=== PATIENT | female | born 1985 | race Caucasian/White ===

== ENCOUNTER 2017-12-08 13:12 | Day surgery (SDC) | payer OTHER ==
[~2017-12-08] VITALS: Ht 160 cm; Wt 99.0 kg
[~2017-12-08 13:12] MED LIST: (None)20 M1 PO; ACET325; ACET325 PO; ALBU90I INH; ALBU90OI; ALBU90OI INH; ALBU90OI6; ALBU90OI6 INH; ALBU90OI61 INH; AMIT25 PO; AMOCLA500 PO; AMOCLA875 PO; AMOX250; AMOX500 PO; AZIT500 PO; BECL40OI INH; BECL80OI INH; BENZ100A PO; BUSP5 PO; BUTASPCAF; Bactrim 400-801 EACH PO; CEPH500 PO; CETI5 PO; CLIN300 PO; CLON.5 PO; CYCL10; CYCL10 PO; DIPH50; DIVA125EC; DIVA500ER; DOXY100 PO; DULO60 PO; Depo-Prove150 MG/11 IM; FAMO20 PO; FLUSAL1005 IH; FLUT.05NI; FOLI1; HYDACE5 PO; HYDCHL12.5 PO; HYDHCL25 PO; HYDPAM25 PO; IBUP200; IBUP200 PO; IBUP600 PO; KETO10 PO; LEVO750; METF500 PO; METF500C PO; METO10 PO; METPHE20 PO; MINO100 PO; MULVITMINE PO; NAPR220; NAPR500 PO; NAPR550 PO; NICO21TP TOP; O2; OMEP10ER; OMEP20ER PO; ONDA4ODT; OXYACE5T PO; OXYACE7.5T PO; PARO20 PO; PARO25 PO; PENVK500 PO; PERM5TC TOP; PRED20 PO; PRENZ; PROACE100 PO; PROAIR RESPICL90 MCG IH; PROBIOTIC1 EAC2 PO; PRODEXEL PO; PROM25 PO; QUET200 PO; QVAR7.3 G1 IH; RANI150; RANI150 PO; RXCLIN PO; RXCYCL10 PO; RXHYDACE PO; RXPROACE PO; RXPROM25S PR; SERT25 PO; SULTRIDS PO; SULTRISS PO; TAMS.4ER PO; TRAM50 PO; TRAZ100 PO; TRAZ50 PO; VENL25 PO; VENL37.5 PO; ZIPR80 PO; [UNRECOGNIZED DRUG - OTHER]; [UNRECOGNIZED DRUG - REMARK]
== END 2017-12-08 16:38 | disposition home or self-care (01) ==
LOC: ORSCSDS 13:12
PROVIDERS: Obstetrics & Gynecology
PROC: 0U5F4ZZ Destruction of Cul-de-sac, Percutaneous Endoscopic Approach (ICD-10-PCS; principal; 2017-12-08 14:30)
DX: N92.1 Excessive and frequent menstruation with irregular cycle (principal); R10.2 Pelvic and perineal pain; N80.3 Endometriosis of pelvic peritoneum; G47.33 Obstructive sleep apnea (adult) (pediatric); I10 Essential (primary) hypertension; J45.909 Unspecified asthma, uncomplicated; R73.03 Prediabetes; F17.210 Nicotine dependence, cigarettes, uncomplicated; Z79.899 Other long term (current) drug therapy
CPT/HCPCS: J0171; J0690; J1100; J1885; J2250; J2370; J2405; J2765; J3010

== ENCOUNTER → 2017-12-23 | Outpatient (CLI) | payer OTHER ==
[~2017-12-23] MED LIST changes: +Omeprazole20 M1; +QUET25 PO; +QVAR REDIHALE10.6 GM INH
== END ==
LOC: LAB 09:20
DX: K21.9 Gastro-esophageal reflux disease without esophagitis (principal)
CPT/HCPCS: 87338

== ENCOUNTER 2018-07-09 11:21 | Inpatient (IN) | payer OTHER ==
[~2018-07-09] VITALS: Ht 160 cm; Wt 110.0 kg
[~2018-07-09 11:21] MED LIST changes: -Omeprazole20 M1; -QUET25 PO; -QVAR REDIHALE10.6 GM INH
[2018-07-09] MEDS ORDERED: CYCL10 PO (11:40)
[2018-07-09] MEDS ORDERED: HYDCHL12.5 PO (11:41)
[2018-07-09] MEDS ORDERED: QUET25 PO (11:41)
[2018-07-09] MEDS ORDERED: IBUP600 PO (11:41)
[2018-07-09 11:46] LABS: BASOPHILS ABSOLUTE AUTO 0.04 K/mm3 (0.00-0.23); BASOPHILS PERCENT AUTO 0 % (0-2); EOSINOPHILS ABSOLUTE AUTO 0.04 K/mm3 (0.00-0.68); EOSINOPHILS PERCENT AUTO 0 % (0-6); Hematocrit 41.5 % (33.0-51.0); Hemoglobin 13.7 g/dL (11.5-16.0); IMMATURE GRAN ABSOLUTE AUTO 0.04 K/mm3 (0.00-0.10); IMMATURE GRAN PERCENT AUTO 0 % (0-1); LYMPHOCYTES ABSOLUTE AUTO 2.28 K/mm3 (0.84-5.20); LYMPHOCYTES PERCENT AUTO 20 % (21-46); MONOCYTES ABSOLUTE AUTO 0.48 K/mm3 (0.16-1.47); MONOCYTES PERCENT AUTO 4 % (4-13); Mean Corpuscular HGB 28.7 pg (26.0-34.0); Mean Corpuscular Volume 87 fL (80-100); Mean Platelet Volume 9.1 fL (9.1-12.4); NEUTROPHILS ABSOLUTE AUTO 8.76 K/mm3 (1.96-9.15); NEUTROPHILS PERCENT AUTO 75 % (41-73); Platelet Count 345 K/mm3 (150-400); RDW Coefficient Variation 13.7 % (11.7-14.2); RDW Standard Deviation 43.4 fL (35.1-46.3); Red Blood Cell Count 4.77 M/mm3 (3.80-5.20); White Blood Cell Count 11.64 K/mm3 (4.00-11.30)
[2018-07-09 12:17] LABS: Source, Urine Clean Catch
[2018-07-09 12:19] LABS: Alanine Aminotransfer (ALT/SGP 22 U/L (12-78); Albumin, Blood 3.2 g/dL (3.4-5.0); Albumin/Globulin Ratio 0.8 (0.8-1.8); Alk Phos 93 U/L (50-136); Anion Gap 11 mmol/L (6-16); Aspartate Aminotrans (AST/SGOT 22 U/L (12-37); Bilirubin, Total 0.3 mg/dL (0.1-1.0); Blood Urea Nitrogen 15 mg/dL (8-24); Bun/Creatinine Ratio 21.8 (12.0-20.0); CO2, Blood 24 mmol/L (21-32); Calcium, Blood 7.9 mg/dL (8.5-10.1); Chloride, Blood 108 mmol/L (98-108); Creatinine, Blood 0.69 mg/dL (0.40-1.00); Globulin, Blood 4.1 g/dL (2.2-4.0); Glomerular Filtration Rate >60 (60-); Glucose, Blood 135 mg/dL (70-99); Potassium, Blood 3.5 mmol/L (3.5-5.5); Salicylate 3.7 mg/dL (2.8-20.0); Sodium, Blood 143 mmol/L (136-145); Total Protein, Blood 7.3 g/dL (6.4-8.2)
[2018-07-09 12:25] LABS: Acetaminophen, Random <2.0 ug/mL (10.0-30.0); Ethanol (Alcohol), Blood, Med <3 mg/dL
[2018-07-09 12:29] LABS: Bilirubin, Urine Neg (Neg); Blood, Urine Neg (Neg); Glucose Qualitative, Urine Neg (Neg); Ketones, Urine Neg (Neg); Leukocyte Esterase, Urine Neg (Neg); Nitrite, Urine Neg (Neg); Protein, Urine Neg (Neg); Specific Gravity, Urine 1.005 (1.003-1.022); Urobilinogen, Urine NORM (Normal)
[2018-07-09 12:45] LABS: U Amphetamine Screen Not Detected; U Barbituate Screen Not Detected; U Benzodiazapine Screen Not Detected; U Buprenorphine Screen Not Detected; U Cannabinoids Screen Not Detected; U Cocaine Screen Not Detected; U Methadone Screen Not Detected; U Methamphetamine Screen Not Detected; U Opiates Screen Not Detected; U Oxycodone Screen Not Detected; U Phencyclidine Screen Not Detected; U Propoxyphene Screen Not Detected
[2018-07-09 12:55] LABS: Appearance, Urine Clear (Clear); Color, Urine Pale Yellow (P-Yellow)
[2018-07-10 04:03] LABS: BASOPHILS ABSOLUTE AUTO 0.07 K/mm3 (0.00-0.23); BASOPHILS PERCENT AUTO 1 % (0-2); EOSINOPHILS ABSOLUTE AUTO 0.18 K/mm3 (0.00-0.68); EOSINOPHILS PERCENT AUTO 2 % (0-6); Hematocrit 37.1 % (33.0-51.0); IMMATURE GRAN ABSOLUTE AUTO 0.02 K/mm3 (0.00-0.10); IMMATURE GRAN PERCENT AUTO 0 % (0-1); LYMPHOCYTES ABSOLUTE AUTO 6.48 K/mm3 (0.84-5.20); LYMPHOCYTES PERCENT AUTO 56 % (21-46); MONOCYTES ABSOLUTE AUTO 0.63 K/mm3 (0.16-1.47); MONOCYTES PERCENT AUTO 5 % (4-13); Mean Corpuscular HGB 28.2 pg (26.0-34.0); Mean Corpuscular HGB Conc 32.3 g/dL (31.5-36.5); Mean Corpuscular Volume 87 fL (80-100); Mean Platelet Volume 9.6 fL (9.1-12.4); NEUTROPHILS ABSOLUTE AUTO 4.29 K/mm3 (1.96-9.15); NEUTROPHILS PERCENT AUTO 37 % (41-73); Platelet Count 323 K/mm3 (150-400); RDW Standard Deviation 43.7 fL (35.1-46.3); Red Blood Cell Count 4.26 M/mm3 (3.80-5.20); White Blood Cell Count 11.67 K/mm3 (4.00-11.30)
[2018-07-10 04:25] LABS: Anion Gap 9 mmol/L (6-16); Blood Urea Nitrogen 16 mg/dL (8-24); CO2, Blood 24 mmol/L (21-32); Chloride, Blood 111 mmol/L (98-108); Glomerular Filtration Rate >60 (60-); Glucose, Blood 112 mg/dL (70-99); Potassium, Blood 3.3 mmol/L (3.5-5.5); Sodium, Blood 144 mmol/L (136-145)
[2018-07-10] MEDS ORDERED: CETI5 PO (10:10)
[2018-07-10] MEDS ORDERED: HYDPAM25 PO (10:11)
[2018-07-10] MEDS ORDERED: Omeprazole20 M1 (10:13)
[2018-07-10] MEDS ORDERED: QVAR REDIHALE10.6 GM INH (10:14)
[2018-07-10] MEDS ORDERED: CYCL10 PO (10:16)
== END 2018-07-10 14:10 | disposition home or self-care (01) | DRG 918 ==
LOC: ER 11:21 → ICUW 13:12
PROVIDERS: Hospitalist; Internal Medicine
DX: T43.592A Poisoning by other antipsychotics and neuroleptics, intentional self-harm, initial encounter (principal); I47.1 Supraventricular tachycardia; K86.1 Other chronic pancreatitis; Z68.41 Body mass index [BMI] 40.0-44.9, adult; F31.9 Bipolar disorder, unspecified; G47.30 Sleep apnea, unspecified; Z87.442 Personal history of urinary calculi; F17.210 Nicotine dependence, cigarettes, uncomplicated; Y92.9 Unspecified place or not applicable; E66.01 Morbid (severe) obesity due to excess calories; K21.9 Gastro-esophageal reflux disease without esophagitis; M19.90 Unspecified osteoarthritis, unspecified site; F44.81 Dissociative identity disorder; J30.9 Allergic rhinitis, unspecified; K58.9 Irritable bowel syndrome, unspecified; J44.9 Chronic obstructive pulmonary disease, unspecified
CPT/HCPCS: 36415; 80048; 80053; 81003; 81025; 84443; 85025; 93005; 93010; 96361; 96374; 99285-25; G0480; J1650; J2405; J7120

== ENCOUNTER → 2019-08-09 | Outpatient (CLI) | payer OTHER ==
[~2019-08-09] MED LIST changes: +Omeprazole20 M1; +QUET25 PO; +QVAR REDIHALE10.6 GM INH
[2019-08-12 04:06] LABS: CHLAMYDIA TRACHOMATIS, NAA Negative (Negative); NEISSERIA GONORRHOEAE, NAA Negative (Negative)
== END | disposition home or self-care (01) ==
LOC: LAB SHORT 16:00 → LAB 16:00
PROVIDERS: Nurse Practitioner Family
DX: Z11.59 Encounter for screening for other viral diseases (principal)
CPT/HCPCS: 87491; 87591

== ENCOUNTER → 2020-02-26 | Outpatient (CLI) | payer OTHER ==
[2020-02-29 04:07] LABS: CHLAMYDIA TRACHOMATIS, NAA Negative (Negative); NEISSERIA GONORRHOEAE, NAA Negative (Negative)
== END ==
LOC: LAB 14:40 → LAB SHORT 14:40
PROVIDERS: Registered Nurse Community Health
DX: Z11.3 Encounter for screening for infections with a predominantly sexual mode of transmission (principal); Z20.2 Contact with and (suspected) exposure to infections with a predominantly sexual mode of transmission
CPT/HCPCS: 87491; 87591

== ENCOUNTER → 2020-05-20 | Outpatient (CLI) | payer OTHER ==
[2020-05-21 21:08] LABS: HPV 16 Negative (Negative); HPV OTHER HR TYPES Positive (Negative)
[2020-05-23 07:15] LABS: HPV 18 Negative (Negative)
[2020-05-23 10:09] LABS: CHLAMYDIA BY NAA Negative (Negative); GONOCOCCUS BY NAA Negative (Negative); TRICH VAG BY NAA Positive (Negative)
== END ==
LOC: LAB 18:13 → LAB SHORT 18:13
PROVIDERS: Registered Nurse Community Health
DX: Z12.4 Encounter for screening for malignant neoplasm of cervix (principal); Z11.3 Encounter for screening for infections with a predominantly sexual mode of transmission
CPT/HCPCS: 87491; 87591; 87624; 87661; G0123

== ENCOUNTER → 2020-07-21 | Outpatient (CLI) | payer OTHER | LOC: PLD 07:29 → LAB SHORT 07:29 | DX: N87.9 Dysplasia of cervix uteri, unspecified (principal) | CPT/HCPCS: 88305 ==

== ENCOUNTER 2021-06-05 15:31 | Emergency (ER) | payer OTHER ==
[~2021-06-05] VITALS: Ht 162.6 cm; Wt 98.4 kg
[2021-06-05 16:37] LABS: BASOPHILS ABSOLUTE AUTO 0.05 K/mm3 (0.00-0.23); BASOPHILS PERCENT AUTO 1 % (0-2); EOSINOPHILS PERCENT AUTO 1 % (0-6); Hematocrit 41.9 % (33.0-51.0); Hemoglobin 13.9 g/dL (11.5-16.0); IMMATURE GRAN ABSOLUTE AUTO 0.03 K/mm3 (0.00-0.10); IMMATURE GRAN PERCENT AUTO 0 % (0-1); LYMPHOCYTES ABSOLUTE AUTO 3.34 K/mm3 (0.84-5.20); LYMPHOCYTES PERCENT AUTO 32 % (21-46); MONOCYTES ABSOLUTE AUTO 0.32 K/mm3 (0.16-1.47); MONOCYTES PERCENT AUTO 3 % (4-13); Mean Corpuscular HGB 28.9 pg (26.0-34.0); Mean Corpuscular HGB Conc 33.2 g/dL (31.5-36.5); Mean Corpuscular Volume 87 fL (80-100); Mean Platelet Volume 9.2 fL (9.1-12.4); NEUTROPHILS ABSOLUTE AUTO 6.67 K/mm3 (1.96-9.15); NEUTROPHILS PERCENT AUTO 63 % (41-73); Platelet Count 376 K/mm3 (150-400); RDW Coefficient Variation 14.4 % (11.7-14.2); RDW Standard Deviation 45.9 fL (35.1-46.3); Red Blood Cell Count 4.81 M/mm3 (3.80-5.20); White Blood Cell Count 10.51 K/mm3 (4.00-11.30)
[2021-06-05 16:41] LABS: Source, Urine Clean Catch
[2021-06-05 16:58] LABS: Alanine Aminotransfer (ALT/SGP 21 U/L (12-78); Albumin, Blood 3.5 g/dL (3.4-5.0); Albumin/Globulin Ratio 0.9 (0.8-1.8); Alk Phos 74 U/L (50-136); Anion Gap 6 mmol/L (6-16); Aspartate Aminotrans (AST/SGOT 16 U/L (12-37); Bilirubin, Total 0.3 mg/dL (0.1-1.0); Blood Urea Nitrogen 14 mg/dL (8-24); Bun/Creatinine Ratio 19.4 (12.0-20.0); CO2, Blood 27 mmol/L (21-32); Calcium, Blood 9.1 mg/dL (8.5-10.1); Chloride, Blood 107 mmol/L (98-108); Creatinine, Blood 0.72 mg/dL (0.40-1.00); Globulin, Blood 4.1 g/dL (2.2-4.0); Glomerular Filtration Rate >60 (60-); Glucose, Blood 133 mg/dL (70-99); Potassium, Blood 3.4 mmol/L (3.5-5.5); Sodium, Blood 140 mmol/L (136-145); Total Protein, Blood 7.6 g/dL (6.4-8.2)
[2021-06-05 16:59] LABS: Appearance, Urine Hazy (Clear); Bilirubin, Urine Neg (Neg); Blood, Urine Neg (Neg); Color, Urine Yellow (P-Yellow); Glucose Qualitative, Urine Neg (Neg); Ketones, Urine Neg (Neg); Leukocyte Esterase, Urine Neg (Neg); Nitrite, Urine Neg (Neg); Protein, Urine Neg (Neg); Specific Gravity, Urine 1.025 (1.003-1.022); Urobilinogen, Urine NORM (Normal)
[2021-06-05 17:12] LABS: Bacteria Few /hpf; Mucus Light (0-Heavy); Squamous Epithelial Cells Mod /hpf (Few); White Blood Cells, Urine 0-2 /hpf (0-5)
[2021-06-05] MEDS ORDERED: Neurontin 100100 MG PO (20:41)
== END 2021-06-05 20:58 | disposition home or self-care (01) ==
LOC: ER 15:31
PROVIDERS: Physician Assistant
DX: M54.5 Low back pain (principal); R32 Unspecified urinary incontinence; R20.0 Anesthesia of skin; J44.9 Chronic obstructive pulmonary disease, unspecified; F17.210 Nicotine dependence, cigarettes, uncomplicated; Z88.0 Allergy status to penicillin; Z88.6 Allergy status to analgesic agent; Z88.5 Allergy status to narcotic agent; Z79.899 Other long term (current) drug therapy
CPT/HCPCS: 36415; 72157; 72158; 80053; 81001; 85025; 85651; 86140; 96374-59; 99284-25; A9270; A9579; J2060

== ENCOUNTER 2021-07-06 08:32 | Emergency (ER) | payer OTHER ==
[~2021-07-06] VITALS: Ht 162.6 cm; Wt 96.6 kg
[~2021-07-06 08:32] MED LIST changes: +Neurontin 100100 MG PO
[2021-07-06] MEDS ORDERED: PREG25 PO (12:23)
[2021-07-06] MEDS ORDERED: PRED20 PO (12:23)
[2021-07-06] MEDS ORDERED: IBUP800 PO (12:23)
[2021-07-06] MEDS ORDERED: Robaxin750 MG PO (12:23)
== END 2021-07-06 13:02 | disposition home or self-care (01) ==
LOC: ER 08:32
DX: M54.42 Lumbago with sciatica, left side (principal); M51.16 Intervertebral disc disorders with radiculopathy, lumbar region; J44.9 Chronic obstructive pulmonary disease, unspecified; G89.29 Other chronic pain; F17.210 Nicotine dependence, cigarettes, uncomplicated; Z88.0 Allergy status to penicillin; Z88.6 Allergy status to analgesic agent; Z88.5 Allergy status to narcotic agent; Z88.8 Allergy status to other drugs, medicaments and biological substances
CPT/HCPCS: 51798; 72131; 96372; 99284-25; A9270; J1885; J7512

== ENCOUNTER → 2021-07-22 | Outpatient (CLI) | payer OTHER ==
[~2021-07-22] MED LIST changes: +IBUP800 PO; +PREG25 PO; +Robaxin750 MG PO
[2021-07-24 15:08] LABS: HPV 16 Negative (Negative); HPV 18 Negative (Negative); HPV OTHER HR TYPES Positive (Negative)
== END ==
LOC: LAB 14:31 → LAB SHORT 14:31
PROVIDERS: Registered Nurse Community Health
DX: Z12.4 Encounter for screening for malignant neoplasm of cervix (principal)
CPT/HCPCS: 87624; G0123

== ENCOUNTER → 2022-09-13 | Outpatient (CLI) | payer OTHER ==
[2022-09-15 15:10] LABS: HPV 16 Negative (Negative); HPV 18 Negative (Negative); HPV OTHER HR TYPES Positive (Negative)
== END | disposition home or self-care (01) ==
LOC: LAB SHORT 14:00 → LAB 14:00
PROVIDERS: Registered Nurse Community Health
DX: Z12.4 Encounter for screening for malignant neoplasm of cervix (principal)
CPT/HCPCS: 87624; 87625; G0123

== ENCOUNTER 2023-12-06 18:19 | Emergency (ER) | payer OTHER ==
[~2023-12-06] VITALS: Ht 162.6 cm; Wt 79.4 kg
[2023-12-06 19:28] LABS: Hematocrit 47.4 % (33.0-51.0); Hemoglobin 15.8 g/dL (11.5-16.0); Mean Corpuscular HGB 29.4 pg (26.0-34.0); Mean Corpuscular HGB Conc 33.3 g/dL (31.5-36.5); Mean Corpuscular Volume 88 fL (80-100); Mean Platelet Volume 8.7 fL (9.1-12.4); Platelet Count 553 K/mm3 (150-400); RDW Coefficient Variation 14.1 % (11.7-14.2); RDW Standard Deviation 45.6 fL (35.1-46.3); Red Blood Cell Count 5.38 M/mm3 (3.80-5.20); White Blood Cell Count 17.14 K/mm3 (4.00-11.30)
[2023-12-06 19:49] LABS: BASOPHILS PERCENT MAN 0 % (0-2); EOSINOPHILS PERCENT MAN 0 % (0-6); LYMPHOCYTES % ATYPICAL MANUAL 1 % (0-0); LYMPHOCYTES ABSOLUTE MAN 4.97 K/mm3 (0.84-5.20); LYMPHOCYTES PERCENT MAN 28 % (21-46); MONOCYTES ABSOLUTE MAN 0.68 K/mm3 (0.16-1.47); MONOCYTES PERCENT MAN 4 % (4-13); NEUTROPHILS ABSOLUTE MAN 11.48 K/mm3 (1.96-9.15); SEG NEUTROPHILS PERCENT MAN 67 % (41-73); TOTAL CELLS COUNTED 100
[2023-12-06 19:51] LABS: Albumin/Globulin Ratio 0.8 (0.8-1.8); Bilirubin, Total 0.4 mg/dL (0.1-1.0); Bun/Creatinine Ratio 15.5 (12.0-20.0); Calcium, Blood 10.3 mg/dL (8.5-10.1); Creatinine, Blood 0.58 mg/dL (0.40-1.00); Globulin, Blood 4.8 g/dL (2.2-4.0); Potassium, Blood 3.4 mmol/L (3.5-5.5); Total Protein, Blood 8.8 g/dL (6.4-8.2)
[2023-12-06 20:04] LABS: Influenza A, PCR NEGATIVE (NEGATIVE); Influenza B, PCR NEGATIVE (NEGATIVE); Resp Syncytial Virus, PCR NEGATIVE (NEGATIVE); SARS-Cov-2 (COVID-19) PCR, MMC NEGATIVE (NEGATIVE)
[2023-12-06] MEDS ORDERED: CITALOPRAM HBR20 M9 PO (21:19)
[2023-12-06] MEDS ORDERED: HYDCHL25 PO (21:19)
[2023-12-06] MEDS ORDERED: HYDROCODONE-AC1 EAC7 PO (21:20)
[2023-12-06] MEDS ORDERED: Inderal40 MG PO (21:20)
[2023-12-07] MEDS ORDERED: Ibuprofen600 MG PO (00:01)
[2023-12-07] MEDS ORDERED: Norco 10-325 T1 EACH PO (00:01)
[2023-12-07 00:30] VITALS: BP 147/114
== END 2023-12-07 00:34 | disposition home or self-care (01) ==
LOC: ER 18:19
PROVIDERS: Student in an Organized Health Care Education/Training Program
DX: Z76.0 Encounter for issue of repeat prescription (principal); S76.911A Strain of unspecified muscles, fascia and tendons at thigh level, right thigh, initial encounter; W17.81XA Fall down embankment (hill), initial encounter; F15.90 Other stimulant use, unspecified, uncomplicated; F11.20 Opioid dependence, uncomplicated; J44.9 Chronic obstructive pulmonary disease, unspecified; F31.9 Bipolar disorder, unspecified; F17.210 Nicotine dependence, cigarettes, uncomplicated; Z88.0 Allergy status to penicillin; Z88.8 Allergy status to other drugs, medicaments and biological substances; Z88.1 Allergy status to other antibiotic agents; Z88.5 Allergy status to narcotic agent; Z91.013 Allergy to seafood; Z20.822 Contact with and (suspected) exposure to COVID-19
CPT/HCPCS: 0241U; 71046; 72170; 73560-RT; 80053; 85025; 93005; 93010; 96372; 99284-25; J1885

== ENCOUNTER 2023-12-19 18:30 | Emergency (ER) | payer OTHER ==
[~2023-12-19] VITALS: Ht 162.6 cm; Wt 81.2 kg
[~2023-12-19 18:30] MED LIST changes: +CITALOPRAM HBR20 M9 PO; +HYDCHL25 PO; +HYDROCODONE-AC1 EAC7 PO; +Ibuprofen600 MG PO; +Inderal40 MG PO; +Norco 10-325 T1 EACH PO
[2023-12-19 18:53] LABS: Source, Urine Clean Catch
[2023-12-19 18:56] LABS: Appearance, Urine Clear (Clear); Bilirubin, Urine Neg (Neg); Blood, Urine Neg (Neg); Color, Urine Yellow (P-Yellow); Glucose Qualitative, Urine Neg (Neg); Ketones, Urine Neg (Neg); Leukocyte Esterase, Urine Neg (Neg); Nitrite, Urine Neg (Neg); Protein, Urine Neg (Neg); Urobilinogen, Urine NORM (Normal); pH, Urine 6.5 (5.0-8.0)
[2023-12-19 19:10] VITALS: BP 120/99
[2023-12-19 19:13] LABS: U Amphetamine Screen DETECTED; U Barbituate Screen Not Detected; U Benzodiazapine Screen Not Detected; U Buprenorphine Screen Not Detected; U Cannabinoids Screen Not Detected; U Cocaine Screen Not Detected; U Methadone Screen Not Detected; U Methamphetamine Screen DETECTED; U Opiates Screen DETECTED; U Oxycodone Screen Not Detected; U Phencyclidine Screen Not Detected
[2023-12-19 19:58] LABS: Hematocrit 44.3 % (33.0-51.0); Hemoglobin 15.3 g/dL (11.5-16.0); Mean Corpuscular HGB 29.2 pg (26.0-34.0); Mean Corpuscular HGB Conc 34.5 g/dL (31.5-36.5); Mean Corpuscular Volume 85 fL (80-100); RDW Coefficient Variation 13.3 % (11.7-14.2); RDW Standard Deviation 41.3 fL (35.1-46.3); Red Blood Cell Count 5.24 M/mm3 (3.80-5.20)
[2023-12-19 20:06] LABS: Ethanol (Alcohol), Blood, Med <3 mg/dL; Salicylate 2.5 mg/dL (2.8-20.0)
[2023-12-19 20:19] LABS: Acetaminophen, Random <2.0 ug/mL (10.0-30.0); Alanine Aminotransfer (ALT/SGP 29 U/L (12-78); Albumin, Blood 3.6 g/dL (3.4-5.0); Albumin/Globulin Ratio 0.8 (0.8-1.8); Alk Phos 108 U/L (50-136); Anion Gap 6 mmol/L (6-16); Aspartate Aminotrans (AST/SGOT 43 U/L (12-37); Bilirubin, Total 0.6 mg/dL (0.1-1.0); Blood Urea Nitrogen 16 mg/dL (8-24); Bun/Creatinine Ratio 24.7 (12.0-20.0); CO2, Blood 23 mmol/L (21-32); Calcium, Blood 9.8 mg/dL (8.5-10.1); Chloride, Blood 107 mmol/L (98-108); Creatinine, Blood 0.65 mg/dL (0.40-1.00); Globulin, Blood 4.5 g/dL (2.2-4.0); Glomerular Filtration Rate 117 (60-); Glucose, Blood 99 mg/dL (70-99); Sodium, Blood 136 mmol/L (136-145); Total Protein, Blood 8.1 g/dL (6.4-8.2)
[2023-12-19 20:26] LABS: Platelet Count 469 K/mm3 (150-400)
[2023-12-19 20:30] LABS: BAND PERCENT MAN 3 % (0-8); BASOPHILS PERCENT MAN 0 % (0-2); EOSINOPHILS ABSOLUTE MAN 0.36 K/mm3 (0.00-0.68); EOSINOPHILS PERCENT MAN 2 % (0-6); LYMPHOCYTES ABSOLUTE MAN 4.88 K/mm3 (0.84-5.20); LYMPHOCYTES PERCENT MAN 27 % (21-46); MONOCYTES ABSOLUTE MAN 0.36 K/mm3 (0.16-1.47); MONOCYTES PERCENT MAN 2 % (4-13); NEUTROPHILS ABSOLUTE MAN 12.48 K/mm3 (1.96-9.15); SEG NEUTROPHILS PERCENT MAN 66 % (41-73); TOTAL CELLS COUNTED 100
== END 2023-12-19 21:48 | disposition home or self-care (01) ==
LOC: ER 18:30
PROVIDERS: Emergency Medicine
DX: F32.A Depression, unspecified (principal); F15.10 Other stimulant abuse, uncomplicated; F17.210 Nicotine dependence, cigarettes, uncomplicated; Z88.0 Allergy status to penicillin; Z88.5 Allergy status to narcotic agent; Z88.1 Allergy status to other antibiotic agents; Z91.013 Allergy to seafood; Z79.899 Other long term (current) drug therapy; J44.9 Chronic obstructive pulmonary disease, unspecified
CPT/HCPCS: 80053; 81003; 85025; 99285; G0480

== ENCOUNTER → 2024-08-21 | Outpatient (CLI) | payer OTHER ==
[2024-08-24 08:29] LABS: HIV 1,2 COMBO ANTIGEN/ANTIBODY Negative (Negative)
[2024-08-24 10:13] LABS: HEPATITIS A ANTIBODY, IGM Negative (Negative); HEPATITIS B CORE ANTIBODY, IGM Negative (Negative); HEPATITIS B SURFACE ANTIGEN Negative (Negative); HEPATITIS C AB CIA INTERP Negative (Negative); HEPATITIS C ANTIBODY CIA INDEX 0.04 IV
== END ==
LOC: LAB 12:30 → LAB SHORT 12:30
PROVIDERS: Nurse Practitioner Family
DX: Z72.51 High risk heterosexual behavior (principal)
CPT/HCPCS: 80074; 87389

== ENCOUNTER 2024-08-24 16:33 | Emergency (ER) | payer OTHER ==
[~2024-08-24] VITALS: Ht 160 cm; Wt 81.7 kg
[2024-08-24 17:12] LABS: BASOPHILS ABSOLUTE AUTO 0.04 K/mm3 (0.00-0.23); BASOPHILS PERCENT AUTO 1 % (0-2); EOSINOPHILS ABSOLUTE AUTO 0.07 K/mm3 (0.00-0.68); EOSINOPHILS PERCENT AUTO 1 % (0-6); Hematocrit 40.3 % (33.0-51.0); Hemoglobin 13.5 g/dL (11.5-16.0); IMMATURE GRAN ABSOLUTE AUTO 0.02 K/mm3 (0.00-0.10); IMMATURE GRAN PERCENT AUTO 0 % (0-1); LYMPHOCYTES ABSOLUTE AUTO 1.84 K/mm3 (0.84-5.20); LYMPHOCYTES PERCENT AUTO 30 % (21-46); MONOCYTES ABSOLUTE AUTO 0.65 K/mm3 (0.16-1.47); MONOCYTES PERCENT AUTO 11 % (4-13); Mean Corpuscular HGB 28.8 pg (26.0-34.0); Mean Corpuscular HGB Conc 33.5 g/dL (31.5-36.5); Mean Corpuscular Volume 86 fL (80-100); Mean Platelet Volume 9.1 fL (9.1-12.4); NEUTROPHILS ABSOLUTE AUTO 3.54 K/mm3 (1.96-9.15); NEUTROPHILS PERCENT AUTO 58 % (41-73); Platelet Count 322 K/mm3 (150-400); RDW Coefficient Variation 13.5 % (11.7-14.2); Red Blood Cell Count 4.69 M/mm3 (3.80-5.20); White Blood Cell Count 6.16 K/mm3 (4.00-11.30)
[2024-08-24 17:27] LABS: Albumin, Blood 3.1 g/dL (3.4-5.0); Albumin/Globulin Ratio 0.8 (0.8-1.8); Bilirubin, Total 0.2 mg/dL (0.1-1.0); Calcium, Blood 8.4 mg/dL (8.5-10.1); Creatinine, Blood 0.76 mg/dL (0.40-1.00); Globulin, Blood 3.7 g/dL (2.2-4.0); Potassium, Blood 3.3 mmol/L (3.5-5.5); Total Protein, Blood 6.8 g/dL (6.4-8.2)
[2024-08-24 17:31] LABS: Influenza A, PCR NEGATIVE (NEGATIVE); Influenza B, PCR NEGATIVE (NEGATIVE); Resp Syncytial Virus, PCR NEGATIVE (NEGATIVE)
[2024-08-24 17:32] LABS: SARS-Cov-2 (COVID-19) PCR, MMC POSITIVE (NEGATIVE)
[2024-08-24] MEDS ORDERED: Droperidol 5 mg/2 ml Vial IV ONE (17:50)
[2024-08-24] MEDS ORDERED: NS 1,000 ML IV SCH (17:50)
[2024-08-24 19:00] VITALS: BP 126/92
== END 2024-08-24 19:15 | disposition home or self-care (01) ==
LOC: ER 16:33
PROVIDERS: Physician Assistant
DX: U07.1 COVID-19 (principal); J44.9 Chronic obstructive pulmonary disease, unspecified; G47.00 Insomnia, unspecified; F17.210 Nicotine dependence, cigarettes, uncomplicated; Z79.899 Other long term (current) drug therapy; Z88.0 Allergy status to penicillin; Z88.6 Allergy status to analgesic agent; Z88.5 Allergy status to narcotic agent; Z91.018 Allergy to other foods; Z88.8 Allergy status to other drugs, medicaments and biological substances
CPT/HCPCS: 0241U; 71046; 80053; 84484; 85025; 93005; 93010; 96374; 99285-25; J1790; J7030

== ENCOUNTER → 2024-09-03 | Outpatient (CLI) | payer OTHER ==
[2024-09-05 09:37] LABS: APTIMA MEDIA TYPE Unisex Swab; C. TRACHOMATIS BY TMA Negative (Negative); N. GONORRHOEAE BY TMA Negative (Negative); SPECIMEN SOURCE Not Provided; T. VAGINALIS BY TMA Negative (Negative)
== END | disposition home or self-care (01) ==
LOC: LAB SHORT 12:54 → LAB 12:54
PROVIDERS: Registered Nurse Community Health
DX: Z11.3 Encounter for screening for infections with a predominantly sexual mode of transmission (principal)
CPT/HCPCS: 87491; 87591; 87661

== ENCOUNTER 2025-06-30 12:50 | Inpatient (IN) | payer OTHER ==
[~2025-06-30] VITALS: Ht 162.6 cm; Wt 106.0 kg
[~2025-06-30 12:50] MED LIST changes: +BUPROPION HCL200 M1 PO; +BUTALB-ACETAMI1 EAC5 PO; +Chantix1 MG PO; +Cyclobenzaprine5 MG PO; +DOCUZEN 8.6-501 EACH PO; +LOSARTAN-HCTZ1 EAC6 PO; +MELO7.5 PO; +MIRALAX11914 PO; +VARENICLINE TA1 EACH PO
[2025-06-30] MEDS ORDERED: Cetirizine HCl10 MG PO (13:13)
[2025-06-30] MEDS ORDERED: MIRALAX11914 PO (13:13)
[2025-06-30] MEDS ORDERED: MELO7.5 PO (13:14)
[2025-06-30] MEDS ORDERED: PROAIR RESPICL90 MCG IH (13:14)
[2025-06-30] MEDS ORDERED: VITAMIN D5000 UNIT PO (13:14)
[2025-06-30] MEDS ORDERED: MEDROXYPRO150 MG/29 IM (13:15)
[2025-06-30 13:43] LABS: BASOPHILS ABSOLUTE AUTO 0.07 K/mm3 (0.00-0.23); BASOPHILS PERCENT AUTO 1 % (0-2); EOSINOPHILS ABSOLUTE AUTO 0.12 K/mm3 (0.00-0.68); EOSINOPHILS PERCENT AUTO 1 % (0-6); Hematocrit 42.2 % (33.0-51.0); Hemoglobin 14.1 g/dL (11.5-16.0); IMMATURE GRAN ABSOLUTE AUTO 0.04 K/mm3 (0.00-0.10); IMMATURE GRAN PERCENT AUTO 0 % (0-1); LYMPHOCYTES ABSOLUTE AUTO 3.47 K/mm3 (0.84-5.20); LYMPHOCYTES PERCENT AUTO 23 % (21-46); MONOCYTES ABSOLUTE AUTO 0.87 K/mm3 (0.16-1.47); MONOCYTES PERCENT AUTO 6 % (4-13); Mean Corpuscular HGB Conc 33.4 g/dL (31.5-36.5); Mean Corpuscular Volume 85 fL (80-100); NEUTROPHILS ABSOLUTE AUTO 10.50 K/mm3 (1.96-9.15); NEUTROPHILS PERCENT AUTO 70 % (41-73); NRBC ABSOLUTE 0.00 K/mm3 (0.00-0.02); NRBC Auto 0.0 /100 WBC (0.0-0.2); Platelet Count 462 K/mm3 (150-400); RDW Coefficient Variation 14.9 % (11.7-14.2); RDW Standard Deviation 46.6 fL (35.1-46.3)
[2025-06-30 13:52] LABS: Acetaminophen, Random <2.0 ug/mL (10.0-30.0); Ethanol (Alcohol), Blood, Med <3 mg/dL; Salicylate 3.4 mg/dL (2.8-20.0)
[2025-06-30 13:53] LABS: Alanine Aminotransfer (ALT/SGP 35 U/L (12-78); Albumin, Blood 3.5 g/dL (3.4-5.0); Albumin/Globulin Ratio 0.9 (0.8-1.8); Anion Gap 10 mmol/L (3-11); Aspartate Aminotrans (AST/SGOT 50 U/L (12-37); Bilirubin, Total 0.5 mg/dL (0.1-1.0); Blood Urea Nitrogen 5 mg/dL (8-24); CO2, Blood 25 mmol/L (21-32); Calcium, Blood 9.2 mg/dL (8.5-10.1); Chloride, Blood 105 mmol/L (98-108); Creatinine, Blood 0.77 mg/dL (0.40-1.00); Globulin, Blood 4.1 g/dL (2.2-4.0); Glucose, Blood 125 mg/dL (70-99); Potassium, Blood 2.6 mmol/L (3.5-5.5); Sodium, Blood 137 mmol/L (136-145); Total Protein, Blood 7.6 g/dL (6.4-8.2)
[2025-06-30 14:57] LABS: Influenza A, PCR NEGATIVE (NEGATIVE); Influenza B, PCR NEGATIVE (NEGATIVE); Resp Syncytial Virus, PCR NEGATIVE (NEGATIVE); SARS-Cov-2 (COVID-19) PCR, MMC NEGATIVE (NEGATIVE)
[2025-06-30 15:05] LABS: U Amphetamine Screen DETECTED; U Barbituate Screen DETECTED; U Benzodiazapine Screen Not Detected; U Buprenorphine Screen Not Detected; U Cannabinoids Screen Not Detected; U Cocaine Screen Not Detected; U Methadone Screen Not Detected; U Methamphetamine Screen DETECTED; U Opiates Screen Not Detected; U Oxycodone Screen Not Detected; U Phencyclidine Screen Not Detected
[2025-06-30 17:36] LABS: Anion Gap 7.0 mmol/L (3-11); Blood Urea Nitrogen 6.0 mg/dL (8-24); CO2, Blood 29.0 mmol/L (21-32); Calcium, Blood 8.6 mg/dL (8.5-10.1); Chloride, Blood 105.0 mmol/L (98-108); Creatinine, Blood 0.66 mg/dL (0.40-1.00); Glucose, Blood 114.0 mg/dL (70-99); Potassium, Blood 3.2 mmol/L (3.5-5.5); Sodium, Blood 138.0 mmol/L (136-145)
[2025-06-30] MEDS ORDERED: Potassium Chl 20MEQ/Water100ML 100 ML IV SCH (18:00)
[2025-06-30] MEDS ORDERED: NS 1,000 ML IV SCH ×2 (18:00→22:00)
[2025-06-30] MEDS ORDERED: DiphenhydrAMINE HCl 50 MG/ML 1ML Vial IV ONE (18:05)
[2025-06-30] MEDS ORDERED: Diazepam 5 MG / ML 2ML SYR IV ONE ×3 (19:10→23:00)
[2025-06-30 20:06] LABS: Magnesium, Blood 2.2 mg/dL (1.6-2.4); Phosphorus, Blood 3.5 mg/dL (2.5-4.9); Salicylate 3.0 mg/dL (2.8-20.0)
[2025-06-30] MEDS ORDERED: Ondansetron HCl 2 MG / ML 2ML Vial IV PRN (22:05)
[2025-06-30] MEDS ORDERED: Diazepam 5 MG / ML 2ML SYR IV PRN ×2 (22:45→23:00)
[2025-06-30] MEDS ORDERED: Polyethylene Glycol 3350 119 GM PO PRN (23:00)
[2025-06-30] MEDS ORDERED: Polyethylene Glycol 3350 119 GM PO ONE (23:00)
[2025-06-30 23:08] LABS: Thyroid Stimulating Hormone 4.04 uIU/mL (0.360-4.800)
[2025-06-30] MEDS ORDERED: Albuterol HFA200 ACT/6.7 GM INH INH PRN (23:10)
[2025-06-30 23:36] LABS: Source, Urine Clean Catch
[2025-06-30 23:39] LABS: Bilirubin, Urine Neg (Neg); Glucose Qualitative, Urine Neg (Neg); Ketones, Urine Neg (Neg); Leukocyte Esterase, Urine Neg (Neg); Protein, Urine 1+ (Neg); Specific Gravity, Urine 1.010 (1.003-1.022); Urobilinogen, Urine NORM (Normal)
[2025-06-30 23:51] LABS: Color, Urine Yellow (P-Yellow); Red Blood Cells, Urine Not Seen /hpf (0-2); White Blood Cells, Urine Not Seen /hpf (0-5)
[2025-07-01] VITALS (42 sets, daily range): BP systolic 104–169; BP diastolic 67–160
[2025-07-01] MEDS ORDERED: Diazepam 5 MG / ML 2ML SYR IV PRN (04:40)
[2025-07-01 05:16] LABS: Anion Gap 10.0 mmol/L (3-11); Blood Urea Nitrogen 5.0 mg/dL (8-24); CO2, Blood 26.0 mmol/L (21-32); Calcium, Blood 8.4 mg/dL (8.5-10.1); Chloride, Blood 109.0 mmol/L (98-108); Creatinine, Blood 0.72 mg/dL (0.40-1.00); Glucose, Blood 140.0 mg/dL (70-99); Potassium, Blood 3.6 mmol/L (3.5-5.5); Sodium, Blood 141.0 mmol/L (136-145)
[2025-07-01] MEDS ORDERED: Enoxaparin 40 MG/0.4 ML SYR SC SCH (09:00)
[2025-07-01] MEDS ORDERED: Magnesium Sulf 2 GM/Water 50ML 50 ML IV ONE (11:35)
[2025-07-01] MEDS ORDERED: Formoterol/Mometasone MDI 5/200 mcg 13 GM INH SCH (17:40)
[2025-07-01 18:24] LABS: Alanine Aminotransfer (ALT/SGP 33.0 U/L (12-78); Albumin, Blood 2.9 g/dL (3.4-5.0); Albumin/Globulin Ratio 0.8 (0.8-1.8); Anion Gap 8.0 mmol/L (3-11); Aspartate Aminotrans (AST/SGOT 37.0 U/L (12-37); Bilirubin, Total 0.3 mg/dL (0.1-1.0); Blood Urea Nitrogen 5.0 mg/dL (8-24); CO2, Blood 23.0 mmol/L (21-32); Calcium, Blood 8.5 mg/dL (8.5-10.1); Chloride, Blood 113.0 mmol/L (98-108); Creatinine, Blood 0.71 mg/dL (0.40-1.00); Globulin, Blood 3.5 g/dL (2.2-4.0); Glucose, Blood 139.0 mg/dL (70-99); Potassium, Blood 3.6 mmol/L (3.5-5.5); Sodium, Blood 140.0 mmol/L (136-145); Total Protein, Blood 6.4 g/dL (6.4-8.2)
[2025-07-02] VITALS (52 sets, daily range): BP systolic 120–169; BP diastolic 82–134
[2025-07-02 04:45] LABS: BASOPHILS ABSOLUTE AUTO 0.06 K/mm3 (0.00-0.23); BASOPHILS PERCENT AUTO 1 % (0-2); EOSINOPHILS ABSOLUTE AUTO 0.36 K/mm3 (0.00-0.68); EOSINOPHILS PERCENT AUTO 3 % (0-6); Hematocrit 36.1 % (33.0-51.0); Hemoglobin 11.5 g/dL (11.5-16.0); IMMATURE GRAN ABSOLUTE AUTO 0.03 K/mm3 (0.00-0.10); IMMATURE GRAN PERCENT AUTO 0 % (0-1); LYMPHOCYTES ABSOLUTE AUTO 3.66 K/mm3 (0.84-5.20); LYMPHOCYTES PERCENT AUTO 30 % (21-46); MONOCYTES ABSOLUTE AUTO 0.64 K/mm3 (0.16-1.47); MONOCYTES PERCENT AUTO 5 % (4-13); Mean Corpuscular HGB Conc 31.9 g/dL (31.5-36.5); NEUTROPHILS ABSOLUTE AUTO 7.33 K/mm3 (1.96-9.15); NEUTROPHILS PERCENT AUTO 61 % (41-73); NRBC ABSOLUTE 0.00 K/mm3 (0.00-0.02); NRBC Auto 0.0 /100 WBC (0.0-0.2); Platelet Count 357 K/mm3 (150-400); RDW Coefficient Variation 15.7 % (11.7-14.2); RDW Standard Deviation 51.9 fL (35.1-46.3)
[2025-07-02 05:03] LABS: Alanine Aminotransfer (ALT/SGP 30.0 U/L (12-78); Albumin, Blood 2.4 g/dL (3.4-5.0); Albumin/Globulin Ratio 0.7 (0.8-1.8); Anion Gap 6.0 mmol/L (3-11); Aspartate Aminotrans (AST/SGOT 26.0 U/L (12-37); Bilirubin, Total 0.1 mg/dL (0.1-1.0); Blood Urea Nitrogen 6.0 mg/dL (8-24); CO2, Blood 28.0 mmol/L (21-32); Calcium, Blood 7.7 mg/dL (8.5-10.1); Chloride, Blood 113.0 mmol/L (98-108); Creatinine, Blood 0.7 mg/dL (0.40-1.00); Globulin, Blood 3.5 g/dL (2.2-4.0); Glucose, Blood 89.0 mg/dL (70-99); Magnesium, Blood 2.1 mg/dL (1.6-2.4); Potassium, Blood 3.8 mmol/L (3.5-5.5); Sodium, Blood 143.0 mmol/L (136-145); Total Protein, Blood 5.9 g/dL (6.4-8.2)
[2025-07-02 05:20] LABS: Mean Corpuscular Volume 91 fL (80-100)
[2025-07-02] MEDS ORDERED: Magnesium Sulf 2 GM/Water 50ML 50 ML IV ONE ×2 (08:15→20:20)
[2025-07-02 12:58] LABS: Anion Gap 9.0 mmol/L (3-11); Blood Urea Nitrogen 7.0 mg/dL (8-24); CO2, Blood 24.0 mmol/L (21-32); Calcium, Blood 8.2 mg/dL (8.5-10.1); Chloride, Blood 112.0 mmol/L (98-108); Creatinine, Blood 0.61 mg/dL (0.40-1.00); Glucose, Blood 108.0 mg/dL (70-99); Potassium, Blood 4.1 mmol/L (3.5-5.5); Sodium, Blood 141.0 mmol/L (136-145)
[2025-07-02] MEDS ORDERED: DiphenhydrAMINE HCl 50 MG/ML 1ML Vial IV ONE (20:20)
[2025-07-02] MEDS ORDERED: Diazepam 5 MG / ML 2ML SYR IV ONE (20:25)
[2025-07-03] VITALS (8 sets, daily range): BP systolic 128–169; BP diastolic 91–114
[2025-07-03 05:37] LABS: BASOPHILS ABSOLUTE AUTO 0.05 K/mm3 (0.00-0.23); BASOPHILS PERCENT AUTO 1 % (0-2); EOSINOPHILS ABSOLUTE AUTO 0.28 K/mm3 (0.00-0.68); EOSINOPHILS PERCENT AUTO 3 % (0-6); Hematocrit 38.3 % (33.0-51.0); Hemoglobin 12.2 g/dL (11.5-16.0); IMMATURE GRAN ABSOLUTE AUTO 0.03 K/mm3 (0.00-0.10); IMMATURE GRAN PERCENT AUTO 0 % (0-1); LYMPHOCYTES ABSOLUTE AUTO 3.29 K/mm3 (0.84-5.20); LYMPHOCYTES PERCENT AUTO 31 % (21-46); MONOCYTES ABSOLUTE AUTO 0.63 K/mm3 (0.16-1.47); MONOCYTES PERCENT AUTO 6 % (4-13); Mean Corpuscular HGB Conc 31.9 g/dL (31.5-36.5); Mean Corpuscular Volume 90 fL (80-100); NEUTROPHILS ABSOLUTE AUTO 6.40 K/mm3 (1.96-9.15); NEUTROPHILS PERCENT AUTO 60 % (41-73); NRBC ABSOLUTE 0.00 K/mm3 (0.00-0.02); NRBC Auto 0.0 /100 WBC (0.0-0.2); Platelet Count 363 K/mm3 (150-400); RDW Coefficient Variation 15.4 % (11.7-14.2); RDW Standard Deviation 50.5 fL (35.1-46.3)
[2025-07-03 06:07] LABS: Alanine Aminotransfer (ALT/SGP 30.0 U/L (12-78); Albumin, Blood 2.5 g/dL (3.4-5.0); Albumin/Globulin Ratio 0.7 (0.8-1.8); Anion Gap 8.0 mmol/L (3-11); Aspartate Aminotrans (AST/SGOT 18.0 U/L (12-37); Bilirubin, Total 0.2 mg/dL (0.1-1.0); Blood Urea Nitrogen 7.0 mg/dL (8-24); CO2, Blood 27.0 mmol/L (21-32); Calcium, Blood 8.0 mg/dL (8.5-10.1); Chloride, Blood 110.0 mmol/L (98-108); Creatinine, Blood 0.67 mg/dL (0.40-1.00); Globulin, Blood 3.7 g/dL (2.2-4.0); Glucose, Blood 87.0 mg/dL (70-99); Magnesium, Blood 2.3 mg/dL (1.6-2.4); Potassium, Blood 3.6 mmol/L (3.5-5.5); Sodium, Blood 141.0 mmol/L (136-145); Total Protein, Blood 6.2 g/dL (6.4-8.2)
[2025-07-03] MEDS ORDERED: Potassium Chl 20MEQ/Water100ML 100 ML IV SCH (07:55)
[2025-07-03 14:13] LABS: Anion Gap 8.0 mmol/L (3-11); Blood Urea Nitrogen 8.0 mg/dL (8-24); CO2, Blood 25.0 mmol/L (21-32); Calcium, Blood 8.5 mg/dL (8.5-10.1); Chloride, Blood 110.0 mmol/L (98-108); Creatinine, Blood 0.63 mg/dL (0.40-1.00); Glucose, Blood 109.0 mg/dL (70-99); Potassium, Blood 4.4 mmol/L (3.5-5.5); Sodium, Blood 139.0 mmol/L (136-145)
[2025-07-03] MEDS ORDERED: HYDROcodone 5-APAP 325 TAB PO PRN (15:15)
[2025-07-04 00:24] VITALS: BP 146/103
[2025-07-04 00:26] VITALS: BP 146/103
[2025-07-04 05:04] VITALS: BP 135/97
[2025-07-04 05:35] LABS: BASOPHILS ABSOLUTE AUTO 0.05 K/mm3 (0.00-0.23); BASOPHILS PERCENT AUTO 1 % (0-2); EOSINOPHILS ABSOLUTE AUTO 0.37 K/mm3 (0.00-0.68); EOSINOPHILS PERCENT AUTO 4 % (0-6); Hematocrit 38.4 % (33.0-51.0); Hemoglobin 12.2 g/dL (11.5-16.0); IMMATURE GRAN ABSOLUTE AUTO 0.03 K/mm3 (0.00-0.10); IMMATURE GRAN PERCENT AUTO 0 % (0-1); LYMPHOCYTES ABSOLUTE AUTO 3.51 K/mm3 (0.84-5.20); LYMPHOCYTES PERCENT AUTO 33 % (21-46); MONOCYTES ABSOLUTE AUTO 0.63 K/mm3 (0.16-1.47); MONOCYTES PERCENT AUTO 6 % (4-13); Mean Corpuscular HGB Conc 31.8 g/dL (31.5-36.5); Mean Corpuscular Volume 92 fL (80-100); NEUTROPHILS ABSOLUTE AUTO 6.00 K/mm3 (1.96-9.15); NEUTROPHILS PERCENT AUTO 57 % (41-73); NRBC ABSOLUTE 0.00 K/mm3 (0.00-0.02); NRBC Auto 0.0 /100 WBC (0.0-0.2); Platelet Count 321 K/mm3 (150-400); RDW Coefficient Variation 15.6 % (11.7-14.2); RDW Standard Deviation 51.8 fL (35.1-46.3)
[2025-07-04 06:26] LABS: Alanine Aminotransfer (ALT/SGP 33.0 U/L (12-78); Albumin, Blood 2.4 g/dL (3.4-5.0); Albumin/Globulin Ratio 0.6 (0.8-1.8); Anion Gap 10.0 mmol/L (3-11); Aspartate Aminotrans (AST/SGOT 20.0 U/L (12-37); Bilirubin, Total 0.1 mg/dL (0.1-1.0); Blood Urea Nitrogen 10.0 mg/dL (8-24); CO2, Blood 27.0 mmol/L (21-32); Calcium, Blood 8.3 mg/dL (8.5-10.1); Chloride, Blood 108.0 mmol/L (98-108); Creatinine, Blood 0.7 mg/dL (0.40-1.00); Globulin, Blood 3.7 g/dL (2.2-4.0); Glucose, Blood 144.0 mg/dL (70-99); Potassium, Blood 4.0 mmol/L (3.5-5.5); Sodium, Blood 141.0 mmol/L (136-145); Total Protein, Blood 6.1 g/dL (6.4-8.2)
[2025-07-04 08:40] VITALS: BP 186/114
[2025-07-04] MEDS ORDERED: Haloperidol Lactate Inj. 5 MG/ML Injection IV ONE (09:30)
[2025-07-04] MEDS ORDERED: LOSA50 PO (10:09)
[2025-07-04] MEDS ORDERED: BUPROPION HCL200 M1 PO (16:29)
== END 2025-07-04 11:40 | DRG 918 ==
LOC: ER 12:50 → EOR 12:51 → ER 12:51 → ICUE 22:00 → PCU 22:00 → ICUE 07-01 06:33
PROVIDERS: Emergency Medicine; Registered Nurse; ADMIT Student in an Organized Health Care Education/Training Program
DX: T45.0X2A Poisoning by antiallergic and antiemetic drugs, intentional self-harm, initial encounter (principal); G40.89 Other seizures; F10.130 Alcohol abuse with withdrawal, uncomplicated; R65.10 Systemic inflammatory response syndrome (SIRS) of non-infectious origin without acute organ dysfunction; E87.20 Acidosis, unspecified; M62.82 Rhabdomyolysis; T43.292A Poisoning by other antidepressants, intentional self-harm, initial encounter; T39.392A Poisoning by other nonsteroidal anti-inflammatory drugs [NSAID], intentional self-harm, initial encounter; G47.00 Insomnia, unspecified; F41.9 Anxiety disorder, unspecified; J44.9 Chronic obstructive pulmonary disease, unspecified; F43.10 Post-traumatic stress disorder, unspecified; G89.29 Other chronic pain; E87.6 Hypokalemia; R94.01 Abnormal electroencephalogram [EEG]; F32.9 Major depressive disorder, single episode, unspecified; F15.90 Other stimulant use, unspecified, uncomplicated; Z98.51 Tubal ligation status; Z79.899 Other long term (current) drug therapy
CPT/HCPCS: 36415; 80048; 80053; 80320; 81001; 81025; 82550; 83605; 83735; 84100; 84146; 84443; 85025; 87637; 93005; 93010; 94640; 94664; 94760; 94762; 96361; 96365; 96366; 96372; 96375; 96376; 99285-25; A9270; C1751; C1894; G0378; G0480; J1200; J1630; J1650; J1790; J3360; J3411; J3475; J3480; J7030; J7050; J7120

== ENCOUNTER 2025-07-04 09:54 | Inpatient (IN) | payer OTHER ==
[~2025-07-04 09:54] MED LIST changes: +Cetirizine HCl10 MG PO; +MEDROXYPRO150 MG/29 IM; +VITAMIN D5000 UNIT PO
[2025-07-04] MEDS ORDERED: LOSA50 PO (10:09)
[2025-07-04 11:48] VITALS: BP 130/92
--- NOTE | 2025-07-04 13:47 | NUR ---
ADMIT NOTE PT ARRIVED ON UNIT ORIENTED X3-4; PT IS SOMNULENT, FALLING ASLEEP INBETWEEN SIGNING CONSENT FORMS AND EATING. ANSWERS QUESTIONS APPROPRIATELY AND ASKED CLARIFYING QUESTIONS ABOUT CONSENT FORM. PT DENIES SI, HI, AVTH AT THIS TIME. EXPRESSED SEVERAL TIMES DESIRE TO GO HOME TO SEE HER CATS. PT DOES NOT APPEAR INTERESTED IN CARE. WHEN TOLD ABOUT PT'S HOLD, PT DID NOT BECOME AGITATED. PT IS NOW SLEEPING/RESTING QUIETLY.
[2025-07-04] MEDS ORDERED: Polyethylene Glycol 3350 17 gm PO PRN (14:10)
[2025-07-04] MEDS ORDERED: Ondansetron 4 MG SoluTab MM PRN (14:10)
[2025-07-04] MEDS ORDERED: Aluminum Hydroxide 320MG/5ML 473 ML PO PRN (14:15)
[2025-07-04] MEDS ORDERED: HYDROcodone 5-APAP 325 TAB PO PRN (14:25)
[2025-07-04] MEDS ORDERED: Albuterol HFA200 ACT/6.7 GM INH INH PRN ×2 (14:35→17:00)
[2025-07-04] MEDS ORDERED: BUPROPION HCL200 M1 PO (16:29)
--- NOTE | 2025-07-04 17:14 | NUR ---
SHIFT SUMMARY PT HAS BEEN SLEEPING SINCE PREVIOUS NOTE.
[2025-07-04 20:10] VITALS: BP 139/90
--- NOTE | 2025-07-04 22:47 | NUR ---
PT WAKES UP AROUND 1997 AND QUESTIONS WHERE SHE IS AND HOW SHE ARRIVED, REVIEWED THE INCIDENTS OF THE LAST FEW DAYS, SHE STATES SHE HAS NO RECOLLECTION. PT MAKES A PHONE CALL TO HER MOTHER, TEARFUL. PT ATE DINNER AND SNACK OF PUDDING, GIVEN MEDS PER ORDERS ALONG WITH [facility] FOR CO PAIN 06/06. PT REPORTS FEELING SUICIDAL AND SHE REMEMBERS TAKING "A BUNCH OF WELLBUTRIN," PT DENIES SI CURRENTLY, STATES SHE WANTS TO GO BACK HOME WITH HER MOM, WELL HER CATS. SHE STATES SHE GOES TO [facility] AND SEES ANDRE LUNA AND SHE SEES Kasey MCCLURE VIA TELEHEALTH FOR COUNSELING. PT IS COOPERATIVE WITH CARE, EKG DONE AND PLACED ON CHART PER ORDERS, LAID BACK DOWN IN BED, WILL MONITOR Q15 FOR SAFETY AND STATUS CHANGES.
--- NOTE | 2025-07-05 06:01 | NUR ---
Patient has remianined in bed asleep in assigned room this shift. Scheduled lab draw at 0700. No concerns or issues to report at this time. Will continue to monitor.
[2025-07-05 08:14] LABS: CHOL/HDL RATIO 3.4; Cholesterol 168 mg/dL (50-200); HDL Cholesterol 50 mg/dL (>39); LDL/HDL RATIO 1.8; Low Density Lipoprotein Chol 88 mg/dL (0-110); Triglycerides 152 mg/dL (30-140); Very Low Density Lipoprot Chol 30 mg/dL (6-28)
[2025-07-05] MEDS ORDERED: Cholecalciferol 1000 Unit Tablet (=25MCG) PO SCH (09:00)
[2025-07-05] MEDS ORDERED: Multivitamins 1 Tab PO SCH (09:00)
[2025-07-05 09:14] VITALS: BP 141/94
[2025-07-05 09:23] VITALS: BP 141/94
[2025-07-05] MEDS ORDERED: Docusate Sodium/Senna 1 Tab PO SCH (14:00)
--- NOTE | 2025-07-05 17:51 | NUR ---
SHIFT SUMMARY PT DENIES SI, HI, AVTH. SLEPT T/O DAY, WOKE UP FOR MEALS AND REQUESTED PAIN MEDICATION TWICE TODAY. PT ALSO WHEN ASKING SI, HI, AVTH QUESTIONS STATED SHE DID NOT REMEMBER ANYTHING. REORIENTED PT. WHEN NOTIFIED THAT PT'S HOLD IS UP THIS TUESDAY, PT STATED "THATS WHEN I CAN GO?" INFORMED PT LONG PSYCHIATRIST CLEARS PT THEN THE PLAN WOULD BE FOR DISCHARGE ON THAT DATE PT DOES NOT WANT TO BE HERE AND SHE WOULD BE VOLUNTARY/DENIES SI, HI, AVTH. PT HAS NOT BEEN AGITATED WHOLE SHIFT AND HAS BEEN PLEASANT AND COOPERATIVE.
[2025-07-05 20:42] VITALS: BP 126/85
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
[2025-07-06] MEDS ORDERED: Docusate Sodium/Senna 1 Tab PO SCH (09:00)
[2025-07-06] MEDS ORDERED: Lidocaine 4% 1 Patch TOP SCH ×2 (10:50→11:00)
[2025-07-06 11:16] VITALS: BP 116/90
--- NOTE | 2025-07-06 17:54 | NUR ---
SHIFT SUMMARY DENIES SI, HI, AVTH. ATTENDED ONE GROUP PARTIALLY. MADE JOKES TODAY AND WAS PLEASANT AND COOPERATIVE. PT AND THIS RN HAD CONFERENCE CALL W/ HER MOTHER TO DISCUSS TENTATIVE PLAN FOR DISCHARGE AND FOR UPDATE. PT RESTING QUIETLY AT THIS TIME.
[2025-07-06 18:04] VITALS: BP 129/76
[2025-07-06 19:55] VITALS: BP 118/88
--- NOTE | 2025-07-07 05:15 | NUR ---
SHIFT SUMMARY Pt is A&O to all, calm, cooperative, eye contact is appropriate. Pt reports her mood as tired, affect is blunted. Pt denies SI, HI, and hallucinations. Pt endorsed lower back pain 7/10w and requested PRN [place], but less than 2 hours had elapsed since last dose was administered. Pt became somewhat agitated and was given PRN olanzapine for MASS score 4 at 2007. Pt took her HS meds and returned to her room. Pt received PRN [place] at 2235 for lower back pain 7. Staff continues to monitor q15m for safety and wellness.
[2025-07-07 07:51] VITALS: BP 111/84
[2025-07-07 09:00] VITALS: BP 124/89
[2025-07-07 10:25] VITALS: BP 119/63
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
[2025-07-07 19:51] VITALS: BP 137/85
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
[2025-07-08 08:00] VITALS: BP 138/91
--- NOTE | 2025-07-08 11:36 | NUR ---
IMPORTANT DISCHARGE INFORMATION PATIENT TO BE DISCHARGED TODAY. HER FRIEND ROBERTO WILL BE PICKING HER UP AROUND 1:30PM. SHE WILL BE DISCHARGED TO HER MOTHERS HOUSE AT [address] [place]. ALL PARTIES VERBALIZE AN UNDERSTANDING. FOLLOW UP WITH PCP ANDRE LUNA [facility] ON 07/15/25 AT 2:50PM. FOLLOW UP WITH [facility]: FAX
[2025-07-08] MEDS ORDERED: LIDO700A20 TOP (12:13)
[2025-07-08] MEDS ORDERED: MELA3 PO (12:14)
[2025-07-08] MEDS ORDERED: METO25 PO (12:15)
[2025-07-08] MEDS ORDERED: MULVITA PO (12:16)
[2025-07-08] MEDS ORDERED: MIRT30 PO (12:16)
[2025-07-08] MEDS ORDERED: NICO21TP TOP (12:17)
[2025-07-08] MEDS ORDERED: SIME80CH PO (12:20)
--- NOTE | 2025-07-08 13:33 | NUR ---
DISCHARGE NOTE: PT DISCHARGED HOME. BELONGINGS RETURNED BY THIS RN. PT GIVEN DISCHARGE INSTRUCTIONS AND DENIED QUESTIONS. AMBULATED OUT OF UNIT WITH DISCHARGE INSTRUCTIONS, MEDICATION INFORMATION AND BELONGINGS IN HAND.
== END 2025-07-08 13:27 | disposition home or self-care (01) | DRG 885 ==
LOC: BHU 09:54
PROVIDERS: ADMIT Student in an Organized Health Care Education/Training Program
DX: F33.2 Major depressive disorder, recurrent severe without psychotic features (principal); E87.21 Acute metabolic acidosis; N17.9 Acute kidney failure, unspecified; M62.82 Rhabdomyolysis; R65.10 Systemic inflammatory response syndrome (SIRS) of non-infectious origin without acute organ dysfunction; F10.139 Alcohol abuse with withdrawal, unspecified; R94.31 Abnormal electrocardiogram [ECG] [EKG]; I10 Essential (primary) hypertension; J44.9 Chronic obstructive pulmonary disease, unspecified; E87.6 Hypokalemia; R56.9 Unspecified convulsions; G89.29 Other chronic pain; M54.9 Dorsalgia, unspecified; F41.9 Anxiety disorder, unspecified; Z98.51 Tubal ligation status; Z88.6 Allergy status to analgesic agent; Z88.5 Allergy status to narcotic agent; Z88.0 Allergy status to penicillin; Z88.8 Allergy status to other drugs, medicaments and biological substances; Z88.1 Allergy status to other antibiotic agents; Z91.013 Allergy to seafood; Z79.899 Other long term (current) drug therapy; R00.0 Tachycardia, unspecified; F17.210 Nicotine dependence, cigarettes, uncomplicated
CPT/HCPCS: 36415; 80061; 82306; 83036; 93005; 93010; A9270

== ENCOUNTER 2025-07-14 16:45 | Emergency (ER) | payer OTHER ==
[~2025-07-14] VITALS: Ht 162.6 cm; Wt 90.7 kg
[~2025-07-14 16:45] MED LIST changes: +LIDO700A20 TOP; +LOSA50 PO; +MELA3 PO; +METO25 PO; +MIRT30 PO; +MULVITA PO; +SIME80CH PO
[2025-07-14 16:48] VITALS: BP 170/112
[2025-07-14] MEDS ORDERED: Ketorolac Tromethamine 30mg Vial IM ONE (16:55)
== END 2025-07-14 18:25 | disposition home or self-care (01) ==
LOC: ER 16:45
DX: M54.2 Cervicalgia (principal); R51.9 Headache, unspecified; J44.9 Chronic obstructive pulmonary disease, unspecified; F17.210 Nicotine dependence, cigarettes, uncomplicated; Z53.29 Procedure and treatment not carried out because of patient's decision for other reasons; Z88.0 Allergy status to penicillin; Z88.6 Allergy status to analgesic agent; Z88.1 Allergy status to other antibiotic agents; Z88.5 Allergy status to narcotic agent; Z88.8 Allergy status to other drugs, medicaments and biological substances; Z91.02 Food additives allergy status; Z79.899 Other long term (current) drug therapy
CPT/HCPCS: 70450; 72125; 99284-25